=== PATIENT | male | born 1955 | race Caucasian/White ===

== ENCOUNTER 2016-07-31 06:51 | Inpatient (IN) | payer OTHER ==
[~2016-07-31 06:51] MED LIST: ASPIRIN325 M3 PO; CPAP; GLUCOTROL10 M1 PO; KLOR-CON20 MEQ PO; LASIX40 M1 PO; METOPROLOL TART25 M1 PO; TYLENOL325 M2 PO; [UNRECOGNIZED DRUG - OTHER]; [UNRECOGNIZED DRUG - OTHER]
[2016-07-31] MEDS ORDERED: LIPITOR40 M1 PO (07:28)
[2016-07-31] MEDS ORDERED: PRINIVIL20 M1 PO (07:29)
[2016-07-31] MEDS ORDERED: GLUCOPHAGE500 M3 PO (07:29)
[2016-08-01 07:12] LABS: BASO % 0.1 % (0-2); EOS % 0.1 % (0-7); HCT-HEMATOCRIT 47.1 % (36.0-53.5); IMMATURE GRANULOCYTES ABSOLUTE 0.04 tho/cmm (0-0.03); IMMATURE GRANULOCYTES PERCENT 0.3 % (0-0.3); LYMPH % 6.4 % (20-45); LYMPH ABSOLUTE COUNT 0.9 tho/cmm (0.8-4.5); MCHC MEAN CORPUSCULAR HGB CONC 31.8 % (32.0-36.0); MCV (MEAN CELL VOLUME) 87.9 fl (82.0-96.0); MONO % 9.4 % (0-12); MONOCYTE ABSOLUTE COUNT 1.3 tho/cmm (0.0-1.2); NEUTROPHIL ABSOLUTE COUNT 11.9 tho/cmm (1.6-8.0); NEUTROPHIL-AUTOMATED 11.9 tho/cmm (1.6-8.0); NEUTROPHILS % 83.7 % (40-80); RED BLOOD COUNT 5.36 mil/cmm (4.40-5.70); RED CELL DISTRIBUTION WIDTH 13.9 % (12.4-16.4); WHITE BLOOD COUNT 14.2 tho/cmm (4.0-10.0)
[2016-08-01 07:39] LABS: ANION GAP 10 mmol/L (0-20); BLOOD UREA NITROGEN 36 mg/dl (6-24); CARBON DIOXIDE-VENOUS 34 mmol/L (22-32); CHLORIDE 99 mmol/l (96-110); CREATININE 1.07 mg/dl (0.60-1.30); GLUCOSE 198 mg/dL (70-110); SODIUM 138 mmol/L (135-145); eGFR VALUE FOR BLACK 87 mL/Min
[2016-08-01 07:40] LABS: POTASSIUM 4.9 mmol/L (3.7-5.1)
[2016-08-01 08:22] LABS: PLATELET COUNT 96 tho/cmm (150-450)
[2016-08-02 09:15] LABS: ABG CO2 ARTERIAL 33 mmol/L (21-27); ARTERIAL BLD GAS O2 SATURATION 89 % (95-98); ARTERIAL PO2 68 mmHg (70-100); BICARBONATE 31 mmol/L (21-28); BLOOD GAS BASE EXCESS 1 mM/L (-/+3); PH 7.23 Units (7.35-7.45)
[2016-08-02 09:17] LABS: ARTERIAL BLOOD GAS PCO2 76 mmHg (32-45)
[2016-08-02 09:53] LABS: BASO % 0.1 % (0-2); EOS % 0.2 % (0-7); IMMATURE GRANULOCYTES ABSOLUTE 0.02 tho/cmm (0-0.03); IMMATURE GRANULOCYTES PERCENT 0.2 % (0-0.3); LYMPH % 6.2 % (20-45); LYMPH ABSOLUTE COUNT 0.6 tho/cmm (0.8-4.5); MCH (MEAN CORPUSCULAR HGB) 27.9 pg (28.0-32.0); MCHC MEAN CORPUSCULAR HGB CONC 31.3 % (32.0-36.0); MCV (MEAN CELL VOLUME) 89.4 fl (82.0-96.0); MEAN PLATELET VOLUME 11.1 cmc (9.4-12.4); MONO % 4.7 % (0-12); MONOCYTE ABSOLUTE COUNT 0.5 tho/cmm (0.0-1.2); NEUTROPHILS % 88.6 % (40-80); PLATELET COUNT 100 tho/cmm (150-450); RED BLOOD COUNT 5.37 mil/cmm (4.40-5.70); RED CELL DISTRIBUTION WIDTH 14.1 % (12.4-16.4); WHITE BLOOD COUNT 10.2 tho/cmm (4.0-10.0)
[2016-08-02 10:09] LABS: CALCIUM 8.2 mg/dl (8.5-10.5); CARBON DIOXIDE-VENOUS 33 mmol/L (22-32); CHLORIDE 97 mmol/l (96-110); GLUCOSE 223 mg/dL (70-110); SODIUM 136 mmol/L (135-145); eGFR VALUE FOR BLACK 35 mL/Min
[2016-08-02 10:13] LABS: ANION GAP 12 mmol/L (0-20); BLOOD UREA NITROGEN 56 mg/dl (6-24); CREATININE 2.26 mg/dl (0.60-1.30); POTASSIUM 5.9 mmol/L (3.7-5.1)
[2016-08-02 11:22] LABS: ABG CO2 ARTERIAL 33 mmol/L (21-27); ARTERIAL BLD GAS O2 SATURATION 91 % (95-98); ARTERIAL PO2 66 mmHg (70-100); BICARBONATE 31 mmol/L (21-28); BLOOD GAS BASE EXCESS 1 mM/L (-/+3); PH 7.25 Units (7.35-7.45)
[2016-08-02 11:24] LABS: ARTERIAL BLOOD GAS PCO2 73 mmHg (32-45)
[2016-08-02 14:57] LABS: ABG CO2 ARTERIAL 33 mmol/L (21-27); ARTERIAL BLD GAS O2 SATURATION 96 % (95-98); BICARBONATE 31 mmol/L (21-28); BLOOD GAS BASE EXCESS 2 mM/L (-/+3); PH 7.26 Units (7.35-7.45)
[2016-08-02 14:59] LABS: ARTERIAL BLOOD GAS PCO2 71 mmHg (32-45); ARTERIAL PO2 91 mmHg (70-100)
[2016-08-02 19:53] LABS: PROCALCITONIN 0.09 ng/ml (0.05-0.09)
[2016-08-03 04:40] LABS: ABG CO2 ARTERIAL 33 mmol/L (21-27); ARTERIAL BLD GAS O2 SATURATION 98 % (95-98); ARTERIAL BLOOD GAS PCO2 65 mmHg (32-45); BICARBONATE 31 mmol/L (21-28); BLOOD GAS BASE EXCESS 4 mM/L (-/+3)
[2016-08-03 04:41] LABS: ARTERIAL PO2 127 mmHg (70-100)
[2016-08-03 05:18] LABS: BASO % 0.1 % (0-2); EOSINOPHIL ABSOLUTE COUNT 0.1 tho/cmm (0.0-0.7); HCT-HEMATOCRIT 42.5 % (36.0-53.5); HGB-HEMOGLOBIN 13.1 gm/dl (13.5-17.0); IMMATURE GRANULOCYTES ABSOLUTE 0.01 tho/cmm (0-0.03); IMMATURE GRANULOCYTES PERCENT 0.1 % (0-0.3); LYMPH % 15.3 % (20-45); LYMPH ABSOLUTE COUNT 1.1 tho/cmm (0.8-4.5); MCH (MEAN CORPUSCULAR HGB) 27.8 pg (28.0-32.0); MCHC MEAN CORPUSCULAR HGB CONC 30.8 % (32.0-36.0); MEAN PLATELET VOLUME 11.2 cmc (9.4-12.4); MONO % 12.6 % (0-12); MONOCYTE ABSOLUTE COUNT 0.9 tho/cmm (0.0-1.2); NEUTROPHILS % 69.9 % (40-80); PLATELET COUNT 86 tho/cmm (150-450); RED BLOOD COUNT 4.72 mil/cmm (4.40-5.70); RED CELL DISTRIBUTION WIDTH 14.3 % (12.4-16.4); WHITE BLOOD COUNT 7.2 tho/cmm (4.0-10.0)
[2016-08-03 05:29] LABS: ANION GAP 9 mmol/L (0-20); BLOOD UREA NITROGEN 45 mg/dl (6-24); CALCIUM 7.8 mg/dl (8.5-10.5); CARBON DIOXIDE-VENOUS 33 mmol/L (22-32); CHLORIDE 102 mmol/l (96-110); POTASSIUM 4.9 mmol/L (3.7-5.1); SODIUM 139 mmol/L (135-145); eGFR VALUE FOR BLACK >90 mL/Min
[2016-08-03 05:34] LABS: CREATININE 1.02 mg/dl (0.60-1.30); GLUCOSE 69 mg/dL (70-110)
[2016-08-04 04:31] LABS: ABG CO2 ARTERIAL 36 mmol/L (21-27); ARTERIAL BLD GAS O2 SATURATION 92 % (95-98); ARTERIAL BLOOD GAS PCO2 57 mmHg (32-45); BICARBONATE 34 mmol/L (21-28); BLOOD GAS BASE EXCESS 7 mM/L (-/+3); PH 7.39 Units (7.35-7.45)
[2016-08-04 04:32] LABS: ARTERIAL PO2 61 mmHg (70-100)
[2016-08-05 04:49] LABS: ABG CO2 ARTERIAL 36 mmol/L (21-27); ARTERIAL BLD GAS O2 SATURATION 99 % (95-98); ARTERIAL BLOOD GAS PCO2 47 mmHg (32-45); BICARBONATE 35 mmol/L (21-28); BLOOD GAS BASE EXCESS 10 mM/L (-/+3); PH 7.48 Units (7.35-7.45)
[2016-08-05 04:50] LABS: ARTERIAL PO2 122 mmHg (70-100)
[2016-08-05 05:31] LABS: ANION GAP 9 mmol/L (0-20); BLOOD UREA NITROGEN 20 mg/dl (6-24); CALCIUM 8.3 mg/dl (8.5-10.5); CARBON DIOXIDE-VENOUS 36 mmol/L (22-32); CHLORIDE 99 mmol/l (96-110); CREATININE 0.75 mg/dl (0.60-1.30); GLUCOSE 159 mg/dL (70-110); PHOSPHOROUS 2.6 mg/dl (2.5-4.9); POTASSIUM 4.5 mmol/L (3.7-5.1); SODIUM 139 mmol/L (135-145); eGFR VALUE FOR BLACK >90 mL/Min
[2016-08-06] MEDS ORDERED: MILK OF MAGNESIA (14:16)
[2016-08-06] MEDS ORDERED: BISACODYL5 M1 PO (14:16)
[2016-08-06] MEDS ORDERED: MIRALAX17 G2 PO ×2 (14:17→14:19)
[2016-08-06] MEDS ORDERED: MILK OF MAGNESIA PO (14:17)
[2016-08-06] MEDS ORDERED: ROXICODONE5 M2 PO (14:20)
[2016-08-06] MEDS ORDERED: ULTRAM50 M1 PO (14:20)
== END 2016-08-06 15:25 | disposition home health service (06) | DRG 469 ==
LOC: SHSB 06:51 → ORE 09:56 → PACU 11:57 → 5EA 12:55 → PCUB 08-02 12:00
PROVIDERS: Family Medicine; Hospitalist; Internal Medicine Critical Care Medicine; ADMIT Orthopaedic Surgery Foot and Ankle Surgery
PROC: 0SRB02A Replacement of Left Hip Joint with Metal on Polyethylene Synthetic Substitute, Uncemented, Open Approach (ICD-10-PCS; principal; 2016-07-31)
PROC: 02HV33Z Insertion of Infusion Device into Superior Vena Cava, Percutaneous Approach (ICD-10-PCS; 2016-08-02)
DX: M16.12 Unilateral primary osteoarthritis, left hip (principal); J96.22 Acute and chronic respiratory failure with hypercapnia; E11.22 Type 2 diabetes mellitus with diabetic chronic kidney disease; D69.6 Thrombocytopenia, unspecified; I27.2 Other secondary pulmonary hypertension; N18.3 Chronic kidney disease, stage 3 (moderate); I27.81 Cor pulmonale (chronic); K56.7 Ileus, unspecified; E66.01 Morbid (severe) obesity due to excess calories; G47.33 Obstructive sleep apnea (adult) (pediatric); D75.1 Secondary polycythemia; Z68.35 Body mass index [BMI] 35.0-35.9, adult; Z91.19 Patient's noncompliance with other medical treatment and regimen; Z88.8 Allergy status to other drugs, medicaments and biological substances; Z79.82 Long term (current) use of aspirin; Z79.84 Long term (current) use of oral hypoglycemic drugs; Z79.899 Other long term (current) drug therapy
CPT/HCPCS: C1751; C1776; J0171; J1815; J1885; J1940; J2270; J2405; J2795; J7030